=== PATIENT | male | born 1960 | race Caucasian/White ===

== ENCOUNTER 2022-05-31 11:54 | Emergency (ER) | payer OTHER, SELFPAY ==
[2022-05-31] VITALS (7 sets, daily range): BP systolic 103–142; BP diastolic 28–111; PULSE 56–67; RESP 14–24; TEMP 36.5–36.9; O2SAT 93–100
--- NOTE | 2022-05-31 11:45 | DI.CT_ITS ---
Exam(s) CT CHEST/ABD/PEL W EXAM: CT CHEST/ABD/PEL W CLINICAL HISTORY: ski, fall, trauma, upper abd pain, hypotension TECHNIQUE: Imaging Protocol: Axial computed tomography images with coronal and sagittal reformatted images were created and reviewed CONTRAST MATERIAL: Intravenous: Omnipaque 350 contrast volume:100 mL Oral: No COMPARISON: No exams were available for comparison FINDINGS: CHEST: Tracheobronchial tree: Patent where visualized. Pulmonary parenchyma: No consolidation or dominant measurable mass. No architectural distortion. Visualized thyroid gland: Unremarkable. Mediastinum and Julia: No dominant adenopathy or fluid collection. The esophagus is unremarkable. Pleura: No effusion or pneumothorax. Heart: The heart is not dilated. No coronary artery calcifications are seen. No pericardial effusion. Pulmonary arteries: Due to the timing of the bolus, the pulmonary arteries are not opacified optimall y for evaluation of pulmonary emboli. Aorta: Thoracic aorta non-dilated. Lymph nodes: Within normal limits. Soft tissues: Unremarkable. Bones:Within normal limits for the patient's age. There is an anterior dislocation of the right shou lder. There are several chronic appearing left rib deformities present. No displaced rib fractures are seen. ABDOMEN: Liver: Normal density. No measurable mass. Portal, Superior Mesenteric, and Splenic Veins: Unremarkable. Gallbladder and Biliary Tract: No radiodense calculus or dilation. Pancreas: Normal density, no abnormal calcifications or inflammatory process. Spleen: Normal. Adrenals: No masses seen. Kidneys: Normal size, contour and axis. No radiodense stones or obstructive uropathy. No masses seen. Abdominal Aorta: Abdominal portion non-dilated. Bowel: No obstruction or bowel wall thickening. Appendix is unremarkable. There is a small fat contai cherelle umbilical hernia containing a knuckle of small bowel within the hernia. The bowel is unremarkab le without evidence of obstruction/strangulation. Peritoneal Cavity: No ascites, collection or mesenteric inflammatory response. No free air. Lymph Nodes: Within normal limits. Bones: Within normal limits for the patient's age. Soft Tissues: Unremarkable. PELVIS: Bladder: Symmetric distention, no gross wall thickening. Reproductive Organs: Unremarkable as visualized. Lymph Nodes: Within normal limits. Bones: Within normal limits. IMPRESSION: 1. There is a right shoulder anterior dislocation. 2. No acute pulmonary process. 3. No acute abdominal or pelvic process. RADIATION DOSE DELIVERED: 2,093.03mGy.cm Total DLP DATA REPOSITORY: All CT scans at this facility are submitted to the National Radiology Data Registry (NRDR) Dose Index Registry (DIR) with the [employer] ([employer]). RADIATION OPTIMIZATION: All CT scans at this facility use at least one of these dose optimization te chniques: automated exposure control; mA and/or kV adjustment per patient size (includes targeted exa ms where dose is matched to clinical indication); or iterative reconstruction.
--- NOTE | 2022-05-31 11:45 | DI.RAD_ITS ---
Exam(s) XR HUMERUS RT EXAM: XR HUMERUS RT CLINICAL HISTORY: fall, concern for dislocation v prox fracture. TECHNIQUE: 2D digital imaging was performed of the right humerus. Three images were obtained. AP a nd lateral views were obtained. COMPARISON: No exams were available for comparison FINDINGS: BONES: No acute fracture is present. No bony destructive lesion is seen. Visualized portion of elbow and shoulder joints are unremarkable. Mild degenerative changes are seen at the acromioclavicular mey nt. SOFT TISSUE: Normal. IMPRESSION: Unremarkable radiographs of the right humerus. DATA REPOSITORY: RADIATION DOSE DELIVERED:
--- NOTE | 2022-05-31 11:45 | DI.RAD_ITS ---
Exam(s) XR SHOULDER RT COMPLETE 2+V EXAM: XR SHOULDER RT COMPLETE 2+V CLINICAL HISTORY: concern for shoulder dislocation v fracture. TECHNIQUE: 2D digital imaging was performed of the right shoulder. Two images were obtained. AP an d Y views were obtained. COMPARISON: No exams were available for comparison FINDINGS: The examination is limited due to patient motion artifact. BONES: No acute fracture is present. No bony destructive lesion is seen. JOINTS: No dislocation present. Degenerative changes are seen at the acromioclavicular and glenohumer al joints. SOFT TISSUE: Normal. IMPRESSION: No acute fracture or dislocation. DATA REPOSITORY: RADIATION DOSE DELIVERED:
[2022-05-31 12:16] LABS: Abs Immature Grans 0.04 10^3/uL (0.0-0.06); Absolute Monocyte Count 0.82 10^3/uL (0.1-0.8); Basophils % 0.5; HCT 45.2 % (40.0-50.0); HGB 15.5 g/dL (13.5-17.5); Immature Grans % 0.3; MCHC 34.3 % (32.0-36.0); MCV 93 fL (80-95); MPV 10.2 fL (8.0-11.0); Monocytes % 6.4; Neutrophils % 76.8; Platelet Count 250 10^3/uL (130-400); RBC 4.84 10^6/uL (4.36-5.78); RDW 12.8 % (11.8-14.1)
[2022-05-31 12:18] LABS: Absolute Basophil Count 0.06 10^3/uL (0.0-0.2); Absolute Eosinophil Count 0.38 10^3/uL (0.0-0.7); Absolute Lymphocyte Count 1.66 10^3/uL (1.2-3.4); Absolute Neutrophil Count 9.83 10^3/uL (1.2-6.7)
[2022-05-31] MEDS: Normal Saline 1,000 ML 1000 ML IV (12:23)
[2022-05-31 12:31] LABS: ALT 26 U/L (16-63); AST 25 U/L (15-37); Albumin 3.8 g/dL (3.4-5.0); Alkaline Phosphatase 102 U/L (46-116); Anion Gap 3.4 mmol/L (3-11); BUN 16 mg/dL (7-18); Bilirubin, Total 1.4 mg/dL (0.2-1.0); CO2 32.6 mmol/L (21.0-32.0); CREATININE 1.1 mg/dL (0.70-1.30); Calcium 8.5 mg/dL (8.5-10.1); Chloride 100 mmol/L (98-107); Glucose 149 mg/dL (74-106); Potassium 4.2 mmol/L (3.5-5.1); Sodium 136 mmol/L (136-145); Total Protein 7.8 g/dL (6.4-8.2)
--- NOTE | 2022-05-31 12:31 | ED.GENADUL_ITS ---
Discharge Plan Disposition Patient Disposition: Home Condition: Improving Discharge Details Chief Complaint: Orthopedic Clinical Impression: Dislocation of shoulder, Fall, Abrasion of face Primary Care Provider: Unknown,Unknown ED Provider: Rell Abbasi Home Meds and New Rx's Prescriptions: No Action atorvastatin [Lipitor] 10 mg Tablet Rx Instructions: unknown dose Discharge Instructions Instructions: Shoulder Dislocation (ED) Additional Instructions: Please use sling as instructed. Please follow-up with your primary orthopedic surgeon when you return home. Please return to the emergency department for any worsening symptoms. Medical Decision Making 61-year-old male fall while skiing helmeted, fell face first into his right shoulder, no loss of conscious, sustained superficial abrasions to face, deformity and pain to right shoulder, empty glenoid fossa, median radial ulnar distribution sensory exam intact, strong radial pulse, warm well perfused extremity, concern for dislocation of right shoulder versus dislocation and fracture of proximal humerus muscles consider thoracoabdominal trauma given epigastric discomfort in the setting of trauma. Nonperitoneal normotensive relatively bradycardic 57 bpm, he is in pain and was given fentanyl in route consider vagal reaction. Will obtain screening labs fluid, analgesia, x-ray shoulder humerus CT chest abdomen pelvis disposition pending results 14: 53 initially while patient was being moved for shoulder x-ray his arm spontaneously relocated. X-ray negative for fracture dislocation. Patient hemodynamically stable neurovascular exam of limb intact. While being moved to CT for his trauma evaluation chest abdomen pelvis, his right shoulder redislocated, patient was brought back to the room given fentanyl 25 mg IV as well as Ativan 1 mg IV countertraction with bedsheet and scapular manipulation as well as downward traction external rotation of affected arm was successful in relocating the arm. Palpable clunk improvement of alignment full glenoid and neurovascular exam of limb intact, arm placed in sling. Awaiting results of CT abdomen pelvis, patient remains hemodynamically stable asymptomatic at this time will likely be discharged home in the care of his family 16: 04 patient resting comfortably no acute distress glenoid is full, neurovascular exam of limb intact. Limited positioning of reduction x-ray given portable view and sling/decreased mobility due to sling. Clinically shoulder i s reduced. Patient feels much better. Patient with follow-up with his primary orthopedic physician when he returns home to [place]. Home care instructions and return precautions given. HPI General Date/Time Provider Initiated Documentation: 05/31/22 11:55 . HPI Narrative: 61-year-old male fall while skiing fell forward hitting his head and right shoulder, no loss of conscious, pain and deformity to right shoulder. Also having upper abdominal pain. Given 200 mg of fentanyl in route. Did have episode of bradycardia and relatively low blood pressure to the 90s systolic. Related Data Home Medications Medication Instructions Recorded Confirmed atorvastatin 10 mg tablet (Lipitor) mg 05/31/22 Allergies Allergy/AdvReac Type Severity Reaction Status Date / Time Penicillins Allergy Unknown Unverified 05/31/22 13:18 General Stated Complaint: Orthopedic DAVID: 3 Review of Systems Narrative: Review of Systems Constitutional: negative Eyes: negative ENT: negative Cardiovascular: negative Respiratory: negative Gastrointestinal: Abdominal pain : negative Musculoskeletal: Shoulder pain Skin: negative Neurologic: negative Psych: negative PFSH All Active Problems (Updated 05/31/22 @ 16:04 by Rell Abbasi MD) Dislocation of shoulder (Acute) Fall (Acute) Abrasion of face (Acute) Social History Smoking/Tobacco Use Status: Never Smoking risk assessment performed?: Yes Alcohol Intake: current Alcohol Intake frequency: 0-2 drinks per day Alcohol type: beer Drug use: Never Do you feel safe at home: Yes Do you feel safe in your relationship?: Yes Exam Narrative Exam Narrative: Physical Examination General: alert, awake, cooperative, moderately uncomfortable HEENT: normocephalic, superficial abrasions to frontal face hemostatic no foreign bodies; PERRL, EOM intact, conjunctiva normal; no nasal discharge; moist mucous membranes, oral and pharyngeal mucosa normal, tolerating secretions Neck: supple, trachea midline; full ROM Chest: normal to inspection Respiratory: normal respiratory effort, speaking in full sentences, clear to auscultation, no wheezing, rales or rhonchi Cardiac: regular rate, regular rhythm, S1S2 intact, no murmurs rubs or gallops GI: abdomen soft, mild epigastric tenderness without ecchymosis guarding or rebounding, non-distended; no palpable mass or hepatosplenomegaly Skin: no lesions, rashes or trauma appreciated Neuro: AAOx3, normal speech, moving all extremities; no cranial nerve deficits, moving all extremities to commands Extremities: Moving right upper extremity adducted, empty glenoid fossa, radial pulse intact, median radial and ulnar nerve distribution intact range of motion at wrist and hand intact flexion extension Psych: Appropriate mood and affect Course Vital Signs Vital signs: Vital Signs Temperature 36.5 C 05/31/22 11:49 Pulse 58 L 05/31/22 11:49 Respiratory Rate 18 05/31/22 11:49 Blood Pressure 104/28 L 05/31/22 11:49 Pulse Oximetry 93 05/31/22 11:49 Temperature 36.5 C 05/31/22 11:49 Temperature Source Temporal Artery Scan 05/31/22 11:49 Pulse 64 05/31/22 12:25 Respiratory Rate 18 05/31/22 12:25 Respiratory Effort 05/31/22 12:08 Blood Pressure 114/80 05/31/22 12:25 Blood Pressure Position Supine 05/31/22 11:49 Pulse Oximetry 96 05/31/22 12:25 Oxygen Delivery Method Room Air 05/31/22 12:25 Oxygen Flow Rate 0 05/31/22 12:25 Pain Level 1 05/31/22 12:25 Lab/Test Results Lab/Test Results: Laboratory Tests Range/Units 05/31/22 12:02 WBC (4.4-10.8) 10^3/uL 12.80 H RBC (4.36-5.78) 10^6/uL 4.84 Hgb (13.5-17.5) g/dL 15.5 Hct (40.0-50.0) % 45.2 MCV (80-95) fL 93 MCH (27.0-33.0) pg 32.0 MCHC (32.0-36.0) % 34.3 RDW (11.8-14.1) % 12.8 Plt Count (130-400) 10^3/uL 250 MPV (8.0-11.0) fL 10.2 Immature Gran % 0.3 Neutrophils % 76.8 Lymphocytes % 13.0 Monocytes % 6.4 Eosinophils % 3.0 Basophils % 0.5 Nucleated RBC % (0.0-0.3) % 0.0 Absolute Neutrophils (1.2-6.7) 10^3/uL 9.83 H Absolute Lymphocytes (1.2-3.4) 10^3/uL 1.66 Absolute Monocytes (0.1-0.8) 10^3/uL 0.82 H Absolute Eosinophils (0.0-0.7) 10^3/uL 0.38 Absolute Basophils (0.0-0.2) 10^3/uL 0.06
[2022-05-31] MEDS: Normal Saline - Diluent 50 ML VIAL IJ (13:29)
[2022-05-31] MEDS: Omnipaque 350 MG/ML 100 ML BTL IJ (13:31)
--- NOTE | 2022-05-31 13:33 | DI.VRAD_ITS ---
PROCEDURE INFORMATION: Exam: XR Right Humerus Exam date and time: 05/31/2022 12:28 PM Age: 61 years old Clinical indication: Injury or trauma; Other: Unknown trauma; Sprain or strain; Shoulder; Right TECHNIQUE: Imaging protocol: Radiologic exam of the Right humerus. 3image(s) are provided. Views: 2 or more views. COMPARISON: CR XR SHOULDER RT COMPLETE 2+V 05/31/2022 12:22 PM FINDINGS: Bones/joints: There is some chronic degeneration of the shoulder glenohumeral and acromioclavicular junctions.Osseous alignment is maintained.No displaced fracture or dislocation is appreciated. Soft tissues: No radiopaque foreign body or subcutaneous emphysema is appreciated. IMPRESSION: Osseous alignment is maintained. No fracture or dislocation is appreciated. Dictated and Authenticated by: Malik Lo MD. Ordering:HERVE Zacarias MD
[2022-05-31] MEDS: Normal Saline Flush 10 ML SYR IJ (13:34)
--- NOTE | 2022-05-31 13:36 | DI.VRAD_ITS ---
PROCEDURE INFORMATION: Exam: XR Right Shoulder Exam date and time: 05/31/2022 12:22 PM Age: 61 years old Clinical indication: Injury or trauma; Other: Unknown trauma; Sprain or strain; Shoulder; Right TECHNIQUE: Imaging protocol: Radiologic exam of the Right shoulder. 2image(s) are provided. Views: 2 or more views. COMPARISON: Humerus radiograph same day. FINDINGS: Bones/joints: Osseous alignment is maintained.No displaced fracture or dislocation is appreciated. There is some chronic degeneration of the acromioclavicular junction and glenohumeral junction. Soft tissues: No radiopaque foreign body or subcutaneous emphysema is appreciated. Other findings: There is some motion artifact present. IMPRESSION: There is some chronic degenerative appearance of the shoulder demonstrated with maintained alignment.No fracture or dislocation is appreciated. Dictated and Authenticated by: Malik Lo MD. Ordering:HERVE Zacarias MD
[2022-05-31] MEDS: fentaNYL 100 MCG/2 ML VIAL 25 MCG IVP (14:20)
[2022-05-31] MEDS: LORazepam 2 MG/ML VIAL 1 MG IVP (14:21)
--- NOTE | 2022-05-31 15:09 | DI.VRAD_ITS ---
PROCEDURE INFORMATION: Exam: CT Chest With Contrast; Diagnostic Exam date and time: 05/31/2022 1:29 PM Age: 61 years old Clinical indication: Injury or trauma; Fall; Generalized; Blunt trauma (contusions or hematomas); Additional info: Ski, fall, trauma, upper abd pain, hypotension TECHNIQUE: Imaging protocol: Diagnostic computed tomography of the chest with contrast. 3D rendering (Not supervised by radiologist): MIP and/or 3D reconstructed images were created by the technologist. Other technique: Axial images are available with sagittal and coronal reconstruction views. Automated dose exposure control is utilized. The DLP is 2093.0. COMPARISON: CR XR HUMERUS RT 05/31/2022 12:28 PM FINDINGS: Trachea: The central airways are patent. Lungs: There is some chronic scarring about the anterior left upper lobe lingula. There are lesser changes of the left lower lobe.No lobar consolidation is appreciated. Pleural spaces: No pneumothorax is appreciated. No significant pleural effusion is appreciated. Heart: No significant effusion or cardiac decompensation is appreciated. Lymph nodes: No abnormal mediastinal or hilar lymph node enlargement is appreciated. Vasculature: No aneurysmal dilatation is appreciated. Intraperitoneal space: There is an unremarkable appearance of the included upper abdominal organs. Bones/joints: There is interval anterior inferior dislocated appearance of the right glenohumeral junction. No displaced fracture is appreciated. There is some flowing thoracic spondylosis demonstrated. There are some chronic appearing left rib deformities present. No other displaced fracture or dislocation is appreciated. Soft tissues: There is some questionable left lateral soft tissue swelling. This may also represent some chronic scarring with previous injury. Other findings: There is some oral cavity metallic streak artifact. IMPRESSION: 1. There is an interval anterior inferior dislocated appearance of the right shoulder. No displaced fracture is appreciated. 2. No lobar consolidation or pneumothorax is appreciated. 3. No abnormal mediastinal or hilar lymph node enlargement is appreciated. PROCEDURE INFORMATION: Exam: CT Abdomen And Pelvis With Contrast Exam date and time: 05/31/2022 1:29 PM Age: 61 years old Clinical indication: Injury or trauma; Fall; Generalized; Blunt trauma (contusions or hematomas); Additional info: Ski, fall, trauma, upper abd pain, hypotension TECHNIQUE: Imaging protocol: Computed tomography of the abdomen and pelvis with contrast. 2982image(s) are provided. 3D rendering (Not supervised by radiologist): MIP and/or 3D reconstructed images were created by the technologist. Other technique: Axial images are available with sagittal and coronal reconstruction views. Automated dose exposure control is utilized. The DLP is 2093.0. COMPARISON: No relevant prior studies available. FINDINGS: Liver: There is some hepatic steatosis appearance overall. Gallbladder and bile ducts: No radiopaque obstructive calculus or biliary ductal dilatation is appreciated. Pancreas: Unremarkable. Spleen: Unremarkable. Adrenal glands: Unremarkable. Kidneys and ureters: Subcentimeter right renal simple appearing cystic changes demonstrated. No radiopaque obstructive renal calculus or hydronephrosis is appreciated. Stomach and bowel: Some aspects of the colon are undistended. This may also be peristaltic related.The bowel gas pattern is unremarkable. There is some very marginal eventration at the umbilical level with some small bowel present. No abnormal dilatation or inflammatory stranding is appreciated. Appendix: No evidence of appendicitis. Intraperitoneal space: No free air or free fluid collections are appreciated. Vasculature: No abdominal aortic aneurysmal dilatation or periaortic fluid is appreciated. Lymph nodes: No abnormal lymph node enlargement is appreciated. Urinary bladder: Unremarkable as visualized. Reproductive: Unremarkable as visualized. Bones/joints: There is some multilevel spurring with disc space narrowing contributing to some osseous neural foraminal narrowing of the lumbar spine.Osseous alignment is maintained. No displaced fracture or dislocation is appreciated. Soft tissues: No radiopaque foreign body or subcutaneous emphysema is appreciated. IMPRESSION: 1. Osseous alignment is maintained. No displaced fracture or dislocation is appreciated. 2. There is an unremarkable appearance of the appendix. 3. No fluid collections or acute inflammatory stranding changes are appreciated. 4. There is some minimal periumbilical eventration with small-bowel although no abnormal dilatation or fluid is present. Dictated and Authenticated by: Malik Lo MD. Ordering:HERVE Zacarias MD
--- NOTE | 2022-05-31 15:15 | DI.RAD_ITS ---
Exam(s) XR SHOULDER RT COMP POST REDUC EXAM: XR SHOULDER RT COMP POST REDUC CLINICAL HISTORY: post reduction. TECHNIQUE: 2D digital imaging was performed of the right shoulder. Three images were obtained. AP, Grashey, Y-view and axillary views were obtained. COMPARISON: CR,XR XR SHOULDER RT COMPLETE 2+V from 05/31/2022 FINDINGS: Examination is limited by patient positioning. BONES: No acute fracture is present. No bony destructive lesion is seen. JOINTS: No definite dislocation present. Degenerative changes are seen in the shoulder. SOFT TISSUE: Normal. IMPRESSION: Examination is limited by patient positioning but no definite dislocation is identified. DATA REPOSITORY: RADIATION DOSE DELIVERED:
--- NOTE | 2022-05-31 15:54 | DI.VRAD_ITS ---
PROCEDURE INFORMATION: Exam: XR Right Shoulder Exam date and time: 05/31/2022 3:14 PM Age: 61 years old Clinical indication: Screening exam; Post reduction TECHNIQUE: Imaging protocol: Radiologic exam of the Right shoulder. 3image(s) are provided. Views: 2 or more views. COMPARISON: CR XR SHOULDER RT COMPLETE 2+V 05/31/2022 12:22 PM FINDINGS: Bones/joints: There is some degeneration of the acromioclavicular junction demonstrated. No interval displaced fracture or dislocation is appreciated. There is subacromial narrowing demonstrated as well as glenohumeral joint space narrowing. There is limitation with positioning although there appears to be some trans-scapular coverage on the transscapular view. Pleural space: No interval right hemithorax consolidation or pneumothorax is appreciated. Soft tissues: No radiopaque foreign body or subcutaneous emphysema is appreciated. Other findings: No other significant interval changes are appreciated. IMPRESSION: 1. No interval displaced fracture is appreciated. 2. There is subacromial narrowing as well as some trans-scapular appearing glenohumeral coverage on the transscapular view. Positioning is limited although there appears to be some residual acute angle at the inferior glenohumeral junction and could represent some residual subluxation. Given the limitation with positioning consider dedicated shoulder CT. Dictated and Authenticated by: Malik Lo MD. Ordering:HERVE Zacarias MD
== END 2022-05-31 16:22 | disposition home or self-care (01) ==
PROVIDERS: Emergency Provider Emergency Medicine
DX: S43.004A Unspecified dislocation of right shoulder joint, initial encounter (principal); S00.81XA Abrasion of other part of head, initial encounter; W19.XXXA Unspecified fall, initial encounter; Y93.23 Activity, snow (alpine) (downhill) skiing, snowboarding, sledding, tobogganing and snow tubing; Y99.8 Other external cause status
CPT/HCPCS: 73030; 74177; 80053; 96361; 96374; 96375; 99285; 71260; 73060; 85025; 99284; J2060; J3010; J3490